=== PATIENT | female | born 1985 | race Hispanic/Latino ===

== ENCOUNTER 2018-03-11 19:58 | Emergency (ER) | payer SELFPAY ==
[2018-03-11 20:21] LABS: Clarity Clear (Clear)
[2018-03-11 20:22] LABS: Pregnancy Test - Urine (BHCG) Negative (Negative); Pregu Control Background? CLEAR/WHITE (CLR/WHITE); Pregu Control Bar Appear? YES (CONTROL BAR); Specific Gravity 1.018 (1.002-1.036)
[2018-03-11 20:23] LABS: Leukocyte Unable to Interpret (Negative); Nitrite Unable to Interpret (Negative); Protein, Urine (Dipstick) Unable to Interpret mg/dL (Neg-Trace); Specific Gravity, Urine 1.018 (1.002-1.036)
[2018-03-11 20:24] LABS: Bilirubin Unable to Interpret (Negative); Blood, Urine Unable to Interpret (Negative); Glucose, Urine (Dipstick) Unable to Interpret mg/dL (Negative); Urobilinogen UNABLE TO INTERPRET mg/dL (0.2-1.0)
[2018-03-11 20:26] LABS: pH, Urine 6.2 (5.0-9.0)
[2018-03-11 20:28] LABS: Hyaline Casts/LPF 0-3 HYALINE CAST LPF (0-3 Hyaline); Pathc Cast-AUWi Flag 0.14 (0-2.49); RBC/HPF 0-3 HPF (0-3); Squamous Epithelial 0-3 HPF (0-3)
[2018-03-11 20:35] LABS: Bacteria/HPF Rare-Few HPF (None Seen)
== END 2018-03-11 22:44 | disposition home or self-care (01) ==
LOC: ERS 19:58
DX: N39.0 Urinary tract infection, site not specified (principal)
CPT/HCPCS: 81003; 81015; 81025; 99284

== ENCOUNTER 2018-10-19 13:56 | Observation (INO) | payer SELFPAY ==
[2018-10-19 15:10] LABS: Pregnancy Test - Urine (BHCG) Negative (Negative); Pregu Control Background? CLEAR/WHITE (CLR/WHITE); Pregu Control Bar Appear? YES (CONTROL BAR); Specific Gravity 1.034 (1.002-1.036)
[2018-10-19 15:13] LABS: Bacteria/HPF 1+ HPF (None Seen); Bilirubin Negative (Negative); Blood, Urine Negative (Negative); Clarity Clear (Clear); Glucose, Urine (Dipstick) Greater than 1000 mg/dL (Negative); Leukocyte 500 Leu/uL (Negative); Nitrite Negative (Negative); Protein, Urine (Dipstick) Negative (Neg-Trace); Squamous Epithelial 0-3 HPF (0-3); Urobilinogen Normal mg/dL (Less than 2)
[2018-10-19 15:26] LABS: Base Excess-Venous -0.3 mmol/L (-2.0 to 3.0); Bicarbonate (HCO3v) 23.8 mmol/L (22.0-28.0); CO2 Tension (PvCO2) 36.5 mmHg (40.0-50.0); Calcium, Ionized 1.07 mmol/L (See Comments:); Chloride 101 mmol/L (98-107); Hemoglobin - Calc 15.6 g/dL (12.0-16.0); Potassium 3.9 mmol/L (3.5-5.1); Sodium 135 mmol/L (138-145); T. Carbon Dioxide 24.9 mmol/L (22.0-28.0); vO2 Saturation-calc 95.7 % (60.0-85.0)
[2018-10-19 15:27] LABS: #Basophils 0.1 thou/uL (0.0-0.2); #Eosinphils 0.1 thou/uL (0.0-0.7); #Lymphocytes 3.3 thou/uL (1.20-3.40); #Monocytes 0.5 thou/uL (0.11-0.59); #Neutrophils 5.3 thou/uL (1.40-6.50); %Basophils 0.5 % (0.0-1.0); %Eosinophils 0.9 % (0.0-10.0); %Lymphocytes 35.8 % (21.0-51.0); %Neutrophils 57.7 % (42.0-75.0); Hemoglobin 15.2 g/dL (12.0-16.0); Mean Corpuscular HGB CONC 35.1 g/dL (32.0-36.0); Mean Corpuscular Hemoglobin 30.5 pg (27.0-31.0); Platelet Count 176 thou/uL (130-400); RBC Distribution Width 11.8 % (11.5-14.5); Red Blood Cell (RBC) Count 4.98 mill/uL (4.20-5.40); White Blood Cell (WBC) Count 9.2 thou/uL (4.8-10.8)
[2018-10-19 15:44] LABS: ALT (SGPT) 62 U/L (8-55); AST (SGOT) 79 U/L (5-34); Albumin 4.1 g/dL (3.5-5.0); Alkaline Phosphatase 128 U/L (40-150); Anion Gap 14 mmol/L (10-20); BUN (Urea Nitrogen) 8 mg/dL (7.0-18.7); Bilirubin, Total 0.7 mg/dL (0.2-1.2); Calc. Creatinine Clearance 0 mL/min (70-130); Calcium 9.2 mg/dL (7.8-10.44); Carbon Dioxide 25 mmol/L (22-29); Chloride 97 mmol/L (98-107); Estimated GFR-MDRD 55; Globulin 3.4 g/dL (2.4-3.5); Magnesium 1.9 mg/dL (1.6-2.6); Phosphorus 2.9 mg/dL (2.3-4.7); Potassium 3.9 mmol/L (3.5-5.1); Protein, Total 7.5 g/dL (6.0-8.3); Sodium 132 mmol/L (136-145)
[2018-10-19 16:06] LABS: Glucose 631 mg/dL (70-105)
[2018-10-19] MEDS ORDERED: Nystatin Powder 15 GM BOT TOP SCH (18:00)
[2018-10-19] MEDS ORDERED: Sodium Chloride 0.9% 1,000 ML IV SCH (18:00)
[2018-10-19] MEDS ORDERED: Ondansetron ODT 4 MG TAB SL PRN (20:50)
[2018-10-19] MEDS ORDERED: Ondansetron PF 4 MG/2 ML Vial IVP PRN (20:50)
[2018-10-19] MEDS ORDERED: Acetaminophen 325 MG TAB PO PRN (20:50)
[2018-10-19] MEDS: Sodium Chloride 0.9% 1,000 ML IV SCH (21:30)
[2018-10-19] MEDS ORDERED: Dextrose 5% in Water 1,000 ML IV PRN (22:01)
[2018-10-19] MEDS ORDERED: Dextrose 50% Abboject 50 ML SYRINGE SLOW IVP PRN (22:01)
[2018-10-19] MEDS: Insulin Regular 300 UNITS/3 ML VIAL SC PRN (22:51)
[2018-10-19] MEDS ORDERED: cefTRIAXone\\ROCEPHIN 1 GM in Sodium Chloride 0.9% 100 ML IVPB SCH (23:00)
--- NOTE | 2018-10-19 23:40 | HP ---
PRIMARY CARE PHYSICIAN: The patient goes to [facility]. CODE STATUS: Full code. TIME OF EVALUATION: 10:00 p.m. CHIEF COMPLAINT: Polydipsia. HISTORY OF PRESENT ILLNESS: This is a 33-year-old female patient, who is obese and family history of diabetes. Her mom came to the hospital after having about 3 to 4 weeks of having polydipsia, polyuria, feeling very thirsty with no clear triggers, no alleviating factors. She also presented with associated vaginal irritation and rash, complaining also of itching, the symptoms were [id number]. No clear triggers. No alleviating factors. REVIEW OF SYSTEMS: CONSTITUTIONAL: No fever, chills, or generalized weakness. RESPIRATORY: No cough, sputum production, or shortness of breath. CARDIOVASCULAR: No chest pain or palpitation. GASTROINTESTINAL: No nausea. No vomiting, diarrhea, or abdominal pain. LIBRARY CIRCULATION TECHNICIAN: No dizziness, headache, or feeling lightheaded. GENITOURINARY: The patient has itching and redness in the perivulvar area. EXTREMITIES: No leg swelling. ENDOCRINE: The patient has polydipsia, polyuria and polyphagia. All other systems were reviewed and negative except for the findings mentioned above. PAST MEDICAL HISTORY: Positive for obesity. No other significant medical history. PAST SURGICAL HISTORY: Tubal ligation. PSYCHIATRIC HISTORY: No previous psychiatric history. SOCIAL HISTORY: The patient is a former smoker. Lives at home with family. FAMILY HISTORY: Mother diabetic. KNOWN ALLERGIES: No known drug allergies. REPORTED MEDICATIONS: None. PHYSICAL EXAMINATION: VITAL SIGNS: On presentation, blood pressure 127/79 with heart rate 80, respiratory rate was 16, temperature 98.6, pain was 0/10, oxygen saturation was 98% on room air. GENERAL APPEARANCE: The patient is alert, oriented, in no acute distress. HEENT: Eyes normal conjunctivae. Dry oral mucosa. Anicteric. No JVD. RESPIRATORY: Bilateral air entry. No rales. No wheezes. Symmetric expansion. CARDIOVASCULAR: Normal rate. Regular rhythm. No murmurs. No gallop. No edema. ABDOMEN: Soft. Normal bowel sounds. MUSCULOSKELETAL: Baseline range of motion and strength. SKIN: Warm, intact. No pallor. No rash. No redness. Capillary refill seems to be intact. NEUROLOGIC: No evidence of any new focal weakness. Cranial nerves seems to be intact. PSYCHIATRIC: The patient is in good mood. No anxiety. Optimal judgment. LABORATORY DATA: Reviewed. The patient has white count 9.2, hemoglobin 15.2, MCV 87, platelet count 176. VBG was done; pH 7.42. Chemistry; sodium 132, potassium 3.9, chloride 97, carbon dioxide 25, anion gap 14, BUN 8, creatinine 1.12, GFR 55, glucose 631, the repeat one 397, the last one 364, calcium 9.2, phosphorus 2.9, magnesium 1.9, total bilirubin 0.7. LFTs were negative. Urine was done. White count was 11 to 20 and beta hydroxybutyrate 0.18. ASSESSMENT AND PLAN: The patient will be placed in the hospital with following medical problems: 1. New onset diabetes. The patient presented with very high blood sugar and dehydration and typical symptoms with polydipsia, polyphagia, and polyuria. The patient has been given some insulin and given fluids. We will place the patient on sliding scale. Blood sugar is more controlled now. We have started the patient on some p.o. medications, to be started tomorrow, and she will need to be established with an outpatient doctor for optimal control of her diabetes. Advised to lose weight. 2. Obesity. Advised to lose weight with diabetes control. 3. Urinary tract infection. The patient has a white count of 11 to 20. The patient has genitourinary symptoms. The patient is on Rocephin for now. 4. Dehydration secondary to uncontrolled diabetes. The patient receiving aggressive hydration. We will monitor. 5. Deep venous thrombosis prophylaxis. Job ID: [id number]
[2018-10-20] MEDS: Sodium Chloride 0.9% 1,000 ML IV SCH (06:59)
[2018-10-20] MEDS: Insulin Regular 300 UNITS/3 ML VIAL SC PRN ×3 (06:59→16:10)
[2018-10-20 08:07] LABS: #Basophils 0.1 thou/uL (0.0-0.2); #Eosinphils 0.1 thou/uL (0.0-0.7); #Lymphocytes 3.1 thou/uL (1.20-3.40); #Monocytes 0.3 thou/uL (0.11-0.59); #Neutrophils 3.5 thou/uL (1.40-6.50); %Basophils 0.8 % (0.0-1.0); %Monocytes 4.1 % (0.0-10.0); %Neutrophils 49.1 % (42.0-75.0); Hemoglobin 14.5 g/dL (12.0-16.0); Mean Corpuscular HGB CONC 35.2 g/dL (32.0-36.0); Mean Corpuscular Hemoglobin 30.4 pg (27.0-31.0); Mean Corpuscular Volume 86.5 fL (78.0-98.0); Mean Platelet Volume 9.9 fL (7.4-10.4); Platelet Count 162 thou/uL (130-400); RBC Distribution Width 11.8 % (11.5-14.5); Red Blood Cell (RBC) Count 4.77 mill/uL (4.20-5.40)
[2018-10-20 08:25] LABS: Anion Gap 11 mmol/L (10-20); BUN (Urea Nitrogen) 8 mg/dL (7.0-18.7); Calc. Creatinine Clearance 131 mL/min (70-130); Calcium 8.4 mg/dL (7.8-10.44); Carbon Dioxide 23 mmol/L (22-29); Chloride 106 mmol/L (98-107); Estimated GFR-MDRD 82; Glucose 335 mg/dL (70-105); Potassium 3.9 mmol/L (3.5-5.1); Sodium 136 mmol/L (136-145)
[2018-10-20] MEDS: metFORMIN 500 MG TAB PO SCH ×2 (08:38→16:46)
[2018-10-20] MEDS ORDERED: Nystatin Cream 15 GM TUBE TOP SCH (09:00)
[2018-10-20 09:04] LABS: ALT (SGPT) 64 U/L (8-55); AST (SGOT) 92 U/L (5-34); Albumin 3.5 g/dL (3.5-5.0); Alkaline Phosphatase 108 U/L (40-150); Anion Gap 12 mmol/L (10-20); BUN (Urea Nitrogen) 8 mg/dL (7.0-18.7); Bilirubin, Total 0.6 mg/dL (0.2-1.2); Calc. Creatinine Clearance 130 mL/min (70-130); Calcium 8.3 mg/dL (7.8-10.44); Carbon Dioxide 22 mmol/L (22-29); Chloride 105 mmol/L (98-107); Estimated GFR-MDRD 80; Globulin 3.2 g/dL (2.4-3.5); Glucose 331 mg/dL (70-105); Lipase 61 U/L (8-78); Potassium 3.9 mmol/L (3.5-5.1); Protein, Total 6.7 g/dL (6.0-8.3); Sodium 135 mmol/L (136-145)
[2018-10-20 10:23] LABS: Amphetamine Not Detected (NotDetected); Barbiturates Screen Not Detected (NotDetected); Benzodiazepine Screen Not Detected (NotDetected); Cocaine Metabolite Screen Not Detected (NotDetected); Medtox Control Line Valid? VALID (VALID); Medtox Reader # READER 4; Methadone Not Detected (NotDetected); Methamphetamine Not Detected (NotDetected); Opiate Screen Not Detected (NotDetected); Oxycodone Screen Not Detected (NotDetected); Phencyclidine (PCP) Not Detected (NotDetected); THC/Cannabinoid Screen Not Detected (NotDetected); Tricyclic Screen Not Detected (NotDetected)
--- NOTE | 2018-10-20 16:23 | DIS ---
DATE OF ADMISSION: 10/19/2018 DATE OF DISCHARGE: 10/20/2018 CONSULTING PHYSICIANS: None. DISCHARGE DIAGNOSES: 1. New onset diabetes mellitus. 2. Vaginal yeast infection. 3. Obesity. HOSPITAL COURSE: Ms. Camp is a 33-year-old woman presenting with severe vaginal irritation for the last several weeks, progressively worsening. She was given a prescription for nystatin powder and about to be discharged from the emergency department when she was noted to have an elevated glucose of 631. For that reason, she was referred and kept overnight. The patient was started on nystatin cream instead of the powder. Has been initiated on metformin 1000 mg twice daily and glipizide 5 mg q.a.m. Her glucose has improved to 283 today. The patient states she had noted polydipsia in the last several weeks. During her hospital stay, she has felt well in herself. Has received aggressive IV hydration. Has been tolerating oral intake and was started on a consistent carb diet. A consult was placed to the dietitian. Remaining laboratory studies were unremarkable. She did not require any imaging during her stay. The patient is very eager for discharge home, though her glucose is not entirely back to normal, it has improved significantly. We expect it will take 1 to 2 weeks for her metformin to take effect. The patient states she has an appointment scheduled tomorrow at the [facility]. The patient's case was discussed with Dr. Rai, who is in agreement with discharge home to continue medications and follow up with her doctor tomorrow. The patient was seen and examined on day of discharge. CONDITION: Stable. ACTIVITY: As tolerated. DIET: Diabetic diet. DISCHARGE MEDICATIONS: 1. The patient advised to continue prescription given for nystatin cream. 2. Given a prescription for metformin 1000 mg by mouth twice daily. 3. Prescription given for glipizide 5 mg p.o. every morning. The patient is scheduled to follow up at the [facility] tomorrow. 4. Advised to follow up with her manager machine for continued management of vaginal infection and a routine pelvic exam once the infection settles. DISPOSITION: The patient medically cleared for discharge home on 10/20/2018. Case discussed with Dr. Rai, who agrees with plan of care as described above. Job ID: [id number]
[2018-10-20 16:38] VITALS: BP 119/60; TEMP 98.2
== END 2018-10-20 17:00 | disposition home or self-care (01) ==
LOC: ERS 13:56 → 3SE 17:50
PROVIDERS: ADMIT Internal Medicine; ATTEND Internal Medicine
DX: E11.9 Type 2 diabetes mellitus without complications (principal); B37.3 Candidiasis of vulva and vagina; E86.0 Dehydration; N39.0 Urinary tract infection, site not specified; E66.9 Obesity, unspecified; Z87.891 Personal history of nicotine dependence
CPT/HCPCS: 36415; 36416; 80048; 80053; 80306; 81003; 81015; 81025; 82010; 82330; 82803; 83690; 83735; 84100; 84145; 85025; 87077; 87086; 96360; 96361; 96365; G0378; J0696; J1815; J3490

== ENCOUNTER 2018-11-20 09:02 | Emergency (ER) | payer SELFPAY ==
[2018-11-20 09:59] LABS: Bilirubin Negative (Negative); Blood, Urine Large (Negative); Glucose, Urine (Dipstick) Negative (Negative); Leukocyte Negative (Negative); Nitrite Negative (Negative); Protein, Urine (Dipstick) 100 mg/dL (Neg-Trace)
[2018-11-20 10:05] LABS: Clarity Turbid (Clear); Pregnancy Test - Urine (BHCG) Negative (Negative); Pregu Control Bar Appear? YES (CONTROL BAR); Specific Gravity 1.015 (1.002-1.036)
[2018-11-20 10:06] LABS: Pregu Control Background? CLEAR/WHITE (CLR/WHITE)
[2018-11-20 10:07] LABS: Bacteria/HPF None Seen HPF (None Seen); RBC/HPF Greater than 50 HPF (0-3); Squamous Epithelial 0-3 HPF (0-3); WBC/HPF 0-3 HPF (0-3)
[2018-11-20 10:11] LABS: #Eosinphils 0.1 thou/uL (0.0-0.7); #Lymphocytes 3.2 thou/uL (1.20-3.40); #Monocytes 0.5 thou/uL (0.11-0.59); %Basophils 0.1 % (0.0-1.0); %Eosinophils 1.4 % (0.0-10.0); %Lymphocytes 41.1 % (21.0-51.0); %Monocytes 6.3 % (0.0-10.0); %Neutrophils 51.1 % (42.0-75.0); Hemoglobin 15.3 g/dL (12.0-16.0); Mean Corpuscular Hemoglobin 31.2 pg (27.0-31.0); Mean Platelet Volume 8.9 fL (7.4-10.4); Platelet Count 210 thou/uL (130-400); RBC Distribution Width 11.9 % (11.5-14.5); White Blood Cell (WBC) Count 7.9 thou/uL (4.8-10.8)
[2018-11-20 10:33] LABS: ALT (SGPT) 63 U/L (8-55); AST (SGOT) 48 U/L (5-34); Alkaline Phosphatase 82 U/L (40-150); Anion Gap 10 mmol/L (10-20); BUN (Urea Nitrogen) 10 mg/dL (7.0-18.7); Bilirubin, Total 0.4 mg/dL (0.2-1.2); Calc. Creatinine Clearance 0 mL/min (70-130); Calcium 8.7 mg/dL (7.8-10.44); Carbon Dioxide 24 mmol/L (22-29); Chloride 107 mmol/L (98-107); Estimated GFR-MDRD 88; Globulin 3.2 g/dL (2.4-3.5); Glucose 139 mg/dL (70-105); Lipase 48 U/L (8-78); Potassium 4.1 mmol/L (3.5-5.1); Protein, Total 7.2 g/dL (6.0-8.3); Sodium 137 mmol/L (136-145)
--- NOTE | 2018-11-20 10:39 | ULT ---
EXAM: Transabdominal and transvaginal pelvic ultrasound with Doppler PROVIDED CLINICAL HISTORY: Vaginal bleeding and pelvic pain COMPARISON: None FINDINGS: The uterus measures approximately 8.4 x 5.3 x 5.2 cm and demonstrates a normal sonographic appearance . Uterine endometrial thickness is approximately 1.5 cm. Right ovary measures approximately 3.7 x 2 x 1.9 cm and demonstrates a normal sonographic appearance. Left ovary measures approximately 3.5 x 2.3 x 3.4 cm and demonstrates a normal sonographic appearance . Grayscale and color Doppler sonography with spectral analysis of the ovarian waveforms demonstrates n ormal flow bilaterally. There is no evidence for free pelvic fluid. IMPRESSION: Nonspecific thickening of the uterine endometrium.
[2018-11-20] MEDS ORDERED: Ketorolac Tromethamine 30 MG/ML VIAL ONE (10:41)
== END 2018-11-20 11:32 | disposition home or self-care (01) ==
LOC: ERS 09:02
DX: N93.8 Other specified abnormal uterine and vaginal bleeding (principal); E11.9 Type 2 diabetes mellitus without complications; Z87.891 Personal history of nicotine dependence; Z79.84 Long term (current) use of oral hypoglycemic drugs
CPT/HCPCS: 36415; 76856; 80053; 81003; 81015; 81025; 83690; 85025; 86850; 86900; 86901; 96374; J1885